=== PATIENT | male | born 1970 | race Caucasian/White ===

== ENCOUNTER 2021-10-09 01:29 | Emergency (ER) | payer MEDICARE ==
[~2021-10-09] VITALS: Ht 190.5 cm; Wt 123.0 kg
[2021-10-09] MEDS ORDERED: ALLOPURINOL100 MG PO (01:48)
[2021-10-09] MEDS ORDERED: ELIQUIS5 MG PO (02:55)
[2021-10-09] MEDS ORDERED: METOPROLOL TART50 MG PO (02:55)
--- NOTE | 2021-10-10 09:51 | EKG ---
[facility] [address] [facility] [place] [address] Signed Atrial fibrillation Abnormal ECG No previous ECGs available Confirmed by HERVE MEDRANO MD ([id number]) on 10/10/2021 9:51:35 AM Electronically Signed By: HERVE MEDRANO MD 10/10/21 0951 PATIENT NAME: JINNY DELGADO Electrocardiogram DATE OF : 72 PHYSICIAN: HERVE MEDRANO MD REPORT #: [id number] REPORT IS CONFIDENTIAL AND NOT TO BE RELEASED WITHOUT AUTHORIZATION
== END 2021-10-09 04:10 | disposition home or self-care (01) ==
LOC: ED 01:29
DX: I48.0 Paroxysmal atrial fibrillation (principal)
CPT/HCPCS: 36415; 71045; 80053; 81001; 84484; 85025; 85379; 85610; 93005; 93010; 96374; 99285-25; G0480